=== PATIENT | male | born 2000 | race Two or more races ===

== ENCOUNTER 2020-08-10 14:02 | Emergency (ER) | payer SELFPAY ==
[~2020-08-10] VITALS: Ht 180.3 cm; Wt 68.0 kg
[2020-08-10 16:16] VITALS: BP 143/69
== END 2020-08-10 16:46 | disposition home or self-care (01) ==
LOC: ER 14:02 → EDBD 14:02 → ER 16:46
DX: R04.0 Epistaxis (principal)

== ENCOUNTER 2023-12-11 11:35 | Emergency (ER) | payer OTHER ==
[~2023-12-11] VITALS: Ht 180.3 cm; Wt 68.0 kg
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
[2023-12-11] MEDS: HYDROcodone-ACET 5/325MG TAB PO ONE (12:13)
[2023-12-11] MEDS ORDERED: IBU600T PO (12:54)
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
[2023-12-11 13:50] VITALS: BP 124/70; PULSE 82; RESP 18; TEMP 97.8; O2SAT 98
== END 2023-12-11 13:51 | disposition home or self-care (01) ==
LOC: ER 11:41
DX: M79.18 Myalgia, other site (principal); M79.662 Pain in left lower leg; V89.2XXA Person injured in unspecified motor-vehicle accident, traffic, initial encounter; Y93.I9 Activity, other involving external motion; Y92.488 Other paved roadways as the place of occurrence of the external cause; Y99.8 Other external cause status
CPT/HCPCS: 73590